=== PATIENT | female | born 1955 | race Caucasian/White ===

== ENCOUNTER 2020-04-14 10:01 | Day surgery (SDC) | payer BC ==
[2020-04-14] MEDS ORDERED: HYDROMORPHONE HCL INJ/PF 2 MG/ML AMPULE IV ONE ×4 (10:12→14:25)
[2020-04-14] MEDS ORDERED: METOCLOPRAMIDE HCL INJ/PF 10 MG/2 ML SDV IV ONE (10:12)
[2020-04-14] MEDS ORDERED: ETOMIDATE INJ/PF 20 MG/10 ML SDV IV ONE (11:37)
--- NOTE | 2020-04-14 11:37 | RADIOLOGY REPORT (SQ) ---
EXAM DESCRIPTION: HIP RIGHT AP/LATERAL IMAGES COMPLETED DATE/TIME: 04/14/2020 11:02 am REASON FOR STUDY: bed 19 s/o fall +pain and recent surgery COMPARISON: None. NUMBER OF VIEWS: Two views. TECHNIQUE: Frontal and cross-table lateral projections of the right hip. LIMITATIONS: None. FINDINGS: MINERALIZATION: Normal. RIGHT HIP: Status post total hip arthroplasty with cranial dislocation of the femoral head component. No osseous injury. No perihardware lucency or hardware fracture. PELVIS: No fracture. SACRUM: No fracture or dislocation. No worrisome bone lesions. LOWER LUMBAR SPINE: No fracture or dislocation. No worrisome bone lesions. SOFT TISSUES: No findings. OTHER: No other significant finding. IMPRESSION: Status post right total hip arthroplasty with cranial dislocation of the femoral compone nt. No osseous injury or evidence of hardware fracture. TECHNICAL DOCUMENTATION: JOB ID: [id number] 2010 [employer]- All Rights Reserved Reading location - IP/workstation name: [email or web address]
--- NOTE | 2020-04-14 13:04 | ER Document Report ---
Entered by CARLY HENRIQUEZ SCRIBE 04/14/20 1144 Acting as scribe for:KATHERINE ELLIS MD ED Extremity Problem, Lower - General Chief Complaint: Hip Pain Stated Complaint: FALL/LEG INJURY Time Seen by Provider: 04/14/20 10:03 Mode of Arrival: Ambulatory Information source: Patient Notes: This 64 year old female patient presents to the emergency department today with complaints of a right hip dislocation. Patient had a total right hip replacement in 2017 and had a revision of this hip 8 weeks ago. She reports that she was standing in the shower today and she was attempting to shave her legs and she felt it "pop out" and she fell over onto the right hip. - Related Data Allergies/Adverse Reactions: morphine Allergy (Verified 04/14/20 11:07) shellfish derived Adverse Reaction (Verified 04/14/20 11:07) Past Medical History - General Information source: Patient - Social History Smoking Status: Never Smoker Cigarette use (# per day): No Frequency of alcohol use: None Drug Abuse: None Lives with: Family Family History: Reviewed & Not Pertinent Musculoskeletal Medical History: Reports Hx Fibromyalgia Psychiatric Medical History: Reports: Hx Depression Past Surgical History: Reports: Hx Orthopedic Surgery - Right total hip replacement 2016, revision January 2020 Review of Systems - Review of Systems Constitutional: No symptoms reported EENT: No symptoms reported Cardiovascular: No symptoms reported Respiratory: No symptoms reported Gastrointestinal: No symptoms reported Genitourinary: No symptoms reported Female Genitourinary: No symptoms reported Musculoskeletal: See HPI, Joint pain - right hip, Deformity - right hip Skin: No symptoms reported Hematologic/Lymphatic: No symptoms reported Neurological/Psychological: No symptoms reported -: Yes All other systems reviewed and negative Physical Exam - Vital signs Vitals: Resp BP Pulse Ox 14 148/77 H 97 04/14/20 10:04 04/14/20 10:04 04/14/20 10:04 - Notes Notes: Physical Exam: General: Alert, appears uncomfortable. HEENT: Normocephalic. Atraumatic. PERRL. Extraocular movements intact. Oropharynx clear. Neck: Supple. Non-tender. Respiratory: No respiratory distress. Clear and equal breath sounds bilaterally. Cardiovascular: Regular rate and rhythm. Abdominal: Normal Inspection. Non-tender. No distension. Normal Bowel Sounds. Back: No gross abnormalities. Extremities: Moves all four extremities. Upper extremities: Right lower extremity is shortened. There is mild tenderness to palpation of the right hip. There is exquisite pain with attempted internal and external rotation of the right lower extremity. Lower extremities: Normal inspection. No edema. Normal ROM. Neurological: Normal cognition. AAOx4. Normal speech. Psychological: Normal affect. Normal Mood. Skin: Warm. Dry. Normal color. Course - Vital Signs Vital signs: Temp Pulse Resp BP Pulse Ox 74 12 133/73 H 100 04/14/20 13:03 04/14/20 13:36 04/14/20 13:36 04/14/20 13:36 - Laboratory Result Diagrams: 04/14/20 13:10 04/14/20 13:10 Laboratory results interpreted by me: 04/14/20 04/14/20 13:10 13:10 Seg Neutrophils % 79.6 H BUN 26 H Glucose 137 H - EKG Interpretation by Me EKG shows normal: Sinus rhythm, [place], Intervals, QRS Complexes. abnormal: ST-T Waves - Borderline inferior T abnormalities Rate: Normal - 63 Heart block present: 1st Degree When compared to previous EKG there are: Previous EKG unavailable - Consults Dr. Lawler Time consulted: 13:00 Consulted provider: will come to ER Procedures - Conscious Sedation Conscious sedation Consent obtained: Yes Pt with a mild systemic disease.: P2. - ASA Classification. Airway Evaluation: Normal anatomy Mallampati Classification: Class 2 Used during procedure: Suction available, IV access obtained, Pulse ox on pt., sediment remediation consultant on pt. Medications administered: Etomidate Reversal agents: None I personally performed/intraservice time: Sedation, Procedure, 30 min or less Complications: Yes Notes: The patient's respiratory rate decreased and oxygen saturation began to drop, so an oral airway was placed and the patient was ventilated via bag valve mask to maintain the oxygen saturations in the 96 to 98% range. She eventually did wake up after the medication wore off and did not have any complaints. - Joint Reduction/Fracture Care Right Hip Consent obtained: Yes Conscious sedation: Yes Pre-procedure NV exam: Yes Post-procedure NV exam: Yes Post-reduction x-ray: Joint not reduced Reduction attempts: 1 Complications: No Notes: 04/14/20 16:01 Dr. Lawler was consulted when I was unable to get the hip reduced. He plans to take the patient to the operating room for reduction under general anesthesia. Discharge - Discharge Clinical Impression: Failure of right total hip arthroplasty with dislocation of hip Qualifiers: Encounter type: initial encounter Qualified Code(s): T84.020A - Dislocation of internal right hip prosthesis, initial encounter Condition: Stable Disposition: ADMITTED INPATIENT Admitting Provider: Dr. Lawler Unit Admitted: Surgical Floor I personally performed the services described in the documentation, reviewed and edited the documentation which was dictated to the scribe in my presence, and it accurately records my words and actions.
[2020-04-14 13:27] LABS: ABSOLUTE EOSINOPHILS # (AUTO) 0.1 10^3/uL (0.0-0.6); ABSOLUTE MONOCYTES (AUTO) 0.4 10^3/uL (0.1-1.4); ABSOLUTE NEUT (AUTO) 6.3 10^3/uL (1.7-8.2); BASOPHILS % (AUTO) 0.5 % (0-2); EOSINOPHILS % (AUTO) 1.1 % (0-6); HEMATOCRIT 37.6 % (36.0-47.0); HEMOGLOBIN 12.8 g/dL (12.0-15.5); LYMPHOCYTES % (AUTO) 13.3 % (13-45); MEAN CORPUSCULAR HEMOGLOBIN 28.2 pg (27.0-33.4); MEAN CORPUSCULAR VOLUME 83 fl (80-97); MONOCYTES % (AUTO) 5.5 % (3-13); PLATELET COUNT 186 10^3/uL (150-450); RED BLOOD COUNT 4.53 10^6/uL (3.72-5.28); RED CELL DISTRIBUTION WIDTH 13.5 % (11.5-14.0); SEGMENTED NEUTROPHILS % (AUTO) 79.6 % (42-78); TOTAL CELLS COUNTED % (AUTO) 100 %; WHITE BLOOD COUNT 7.9 10^3/uL (4.0-10.5)
[2020-04-14 13:39] LABS: ALBUMIN 4.1 g/dL (3.5-5.0); ALKALINE PHOSPHATASE 103 U/L (38-126); ANION GAP 5 (5-19); ASPARTATE AMINO TRANSFERASE 30 U/L (14-36); BILIRUBIN,DIRECT 0.3 mg/dL (0.0-0.4); BILIRUBIN,TOTAL 0.6 mg/dL (0.2-1.3); BLOOD UREA NITROGEN 26 mg/dL (7-20); CALCIUM 9.1 mg/dL (8.4-10.2); CARBON DIOXIDE 27 mmol/L (22-30); CHLORIDE 107 mmol/L (98-107); GLUCOSE 137 mg/dL (75-110); TOTAL PROTEIN 6.6 g/dL (6.3-8.2)
--- NOTE | 2020-04-14 14:23 | RADIOLOGY REPORT (SQ) ---
EXAM DESCRIPTION: CHEST SINGLE VIEW IMAGES COMPLETED DATE/TIME: 04/14/2020 1:47 pm REASON FOR STUDY: Preop COMPARISON: None. EXAM PARAMETERS: NUMBER OF VIEWS: One view. TECHNIQUE: Single frontal radiographic view of the chest acquired. RADIATION DOSE: NA LIMITATIONS: None. FINDINGS: LUNGS AND PLEURA: No opacities, masses or pneumothorax. No pleural effusion. MEDIASTINUM AND HILAR STRUCTURES: No masses. Contour normal. HEART AND VASCULAR STRUCTURES: Heart normal in size. Normal vasculature. BONES: No acute findings. HARDWARE: None in the chest. OTHER: No other significant finding. IMPRESSION: NO ACUTE RADIOGRAPHIC FINDING IN THE CHEST. TECHNICAL DOCUMENTATION: JOB ID: [id number] 2010 [employer]- All Rights Reserved Reading location - IP/workstation name: [email or web address]
[2020-04-14] MEDS ORDERED: ONDANSETRON HCL INJ/PF 4 MG/2 ML SDV IV ONE (14:25)
--- NOTE | 2020-04-14 14:36 | EKG REPORT ---
SEVERITY:- ABNORMAL ECG - SINUS RHYTHM FIRST DEGREE AV BLOCK BORDERLINE T ABNORMALITIES, INFERIOR LEADS : Confirmed by: Awilda Kaur MD 14-Apr-2020 14:34:54
[2020-04-14] MEDS: HYDROMORPHONE HCL INJ/PF 2 MG/ML AMPULE IV PRN ×3 (17:54→23:30)
[2020-04-14] MEDS ORDERED: DEXTROSE 40% GEL 15 GM TUBE PO PRN ×2 (17:57)
[2020-04-14] MEDS ORDERED: DEXTROSE 50%-WATER 25 GM/50 ML DISP.SYRIN IV PRN ×2 (17:57)
[2020-04-14] MEDS ORDERED: GLUCAGON,HUMAN RECOMB 1 MG INJ SUBCUT PRN (17:57)
[2020-04-14] MEDS: ONDANSETRON HCL INJ/PF 4 MG/2 ML SDV IV PRN (18:02)
[2020-04-14] MEDS: OXYCODONE HCL IR 5 MG TABLET PO PRN ×2 (18:36→22:53)
[2020-04-14] MEDS: SPIRONOLACTONE 25 MG TABLET PO SCH (18:45)
[2020-04-14 19:46] LABS: APPEARANCE,URINE CLEAR; BILIRUBIN,URINE NEGATIVE (NEGATIVE); COLOR,URINE YELLOW; GLUCOSE, URINE NEGATIVE (NEGATIVE); KETONES,URINE TRACE mg/dL (NEGATIVE); LEUKOCYTE ESTERASE,URINE NEGATIVE (NEGATIVE); NITRITE,URINE NEGATIVE (NEGATIVE); PROTEIN,URINE NEGATIVE (NEGATIVE); UROBILINOGEN,URINE NEGATIVE mg/dL (<2.0)
[2020-04-14] MEDS ORDERED: NADOLOL 40 MG TABLET PO SCH (22:00)
[2020-04-15] MEDS ORDERED: RINGERS SOLUTION,LACTATED 1,000 ML IV PRN ×2 (00:01→08:20)
[2020-04-15] MEDS: HYDROMORPHONE HCL INJ/PF 2 MG/ML AMPULE IV PRN ×3 (00:47→05:50)
[2020-04-15] MEDS ORDERED: IBUPROFEN INJ 800 MG/8 ML VIAL IV ONE (02:00)
[2020-04-15] MEDS: ONDANSETRON HCL INJ/PF 4 MG/2 ML SDV IV PRN (02:36)
[2020-04-15] MEDS ORDERED: ACETAMINOPHEN 1,000 MG/100 ML RTUPB IV ONE (03:30)
--- NOTE | 2020-04-15 06:58 | PDOC H&P ---
History of Present Illness Admission Date/PCP: 04/14/20 13:21 NO LOCALMA History of Present Illness: SHEILA SHETTY is a 64 year old female 64-year-old female status post a right hip arthroplasty in 2017 and then a subsequent acetabular revision on February 07, 2020. The patient did well following this until the morning of admission at which point she placed her leg up on the rim of a bathtub to shave her legs and the extremity gave way and she fell. She is brought to the emergency room her prosthetic right hip dislocation was identified radiographically. An attempt was made for closed reduction under conscious sedation which was unsuccessful and notable for extreme sensitivity on the patient's part to medication and respiratory depression. Patient subsequently to the orthopedic service for management of the dislocation. Past Medical History Medical History: None Cardiac Medical History: Reports: Hypertension Musculoskeltal Medical History: Reports: Fibromyalgia Psychiatric Medical History: Reports: Depression Past Surgical History Past Surgical History: Reports: Orthopedic Surgery - Right total hip replacement 2016, revision January 2020 Social History Information Source: Patient, [facility] Records Lives with: Family, Spouse/Significant other Smoking Status: Never Smoker Frequency of Alcohol Use: Occasional Hx Recreational Drug Use: No Hx Prescription Drug Abuse: No - Advance Directive Resuscitation Status: Full Code Family History Family History: Reviewed & Not Pertinent Parental Family History Reviewed: No Children Family History Reviewed: No Sibling(s) Family History Reviewed.: No Medication/Allergy Home Medications: Biotin 2,500 mcg PO DAILY 04/14/20 Bupropion HCl [Bupropion HCl Sr] 150 mg PO BID 04/14/20 Calcium/Magnesium/Zinc [Ctjktgf-Iiaqnjuut-Jaci Tablet] 2 tab PO QHS 04/14/20 Cholecalciferol (Vitamin D3) [Vitamin D3] 125 mcg PO DAILY 04/14/20 Diclofenac Submicronized [Zorvolex] 35 mg PO TID 04/14/20 Duloxetine HCl 30 mg PO QHS 04/14/20 Estradiol [Vagifem] 10 mcg VG TUTH 04/14/20 Gabapentin 300 mg PO Q8 04/14/20 Melatonin 5 mg PO QHS 04/14/20 Nadolol 20 mg PO QHS 04/14/20 Spironolactone [Aldactone 25 mg Tablet] 25 mg PO BID 04/14/20 Hydrocodone/Acetaminophen [[place] 5-325 Tablet] 1 each PO Q4 04/15/20 Tramadol HCl [Ultram 50 mg Tablet] 50 mg PO Q6HP PRN 04/15/20 Allergies/Adverse Reactions: morphine Allergy (Verified 04/14/20 11:07) shellfish derived Adverse Reaction (Verified 04/14/20 11:07) Review of Systems All systems: as per PMH Physical Exam Vital Signs: Temp Pulse Resp BP Pulse Ox 36.3 C 55 L 18 125/65 100 04/15/20 00:00 04/15/20 00:00 04/15/20 00:00 04/15/20 00:00 04/15/20 00:00 Intake & Output 04/13/20 04/14/20 04/15/20 06:59 06:59 06:59 Intake Total 270 Output Total 700 Balance -430 Weight 220.7 kg General appearance: PRESENT: mild distress, well-developed, well-nourished Head exam: PRESENT: normocephalic Respiratory exam: PRESENT: unlabored Cardiovascular exam: PRESENT: RRR Pulses: PRESENT: +1 pedal pulses bilateral Vascular exam: PRESENT: normal capillary refill GI/Abdominal exam: PRESENT: soft Rectal exam: PRESENT: deferred Extremities exam: PRESENT: other - Right lower extremity is shortened and externally rotated. There is brisk capillary refill. Motor function to great toe flexion extension is intact. There is no skin abnormalities. Results Laboratory Results: 04/14/20 13:10 04/14/20 13:10 04/14/20 04/14/20 04/14/20 13:10 13:10 19:09 WBC 7.9 RBC 4.53 Hgb 12.8 Hct 37.6 MCV 83 MCH 28.2 MCHC 34.0 RDW 13.5 Plt Count 186 Seg Neutrophils % 79.6 H Sodium 138.8 Potassium 4.0 Chloride 107 Carbon Dioxide 27 Anion Gap 5 BUN 26 H Creatinine 0.85 Est GFR ( Amer) > 60 Glucose 137 H Calcium 9.1 Total Bilirubin 0.6 AST 30 Alkaline Phosphatase 103 Total Protein 6.6 Albumin 4.1 Urine Color YELLOW Urine Appearance CLEAR Urine pH 7.0 Ur Specific [place] 1.020 Urine Protein NEGATIVE Urine Glucose (UA) NEGATIVE Urine Ketones TRACE H Urine Blood NEGATIVE Urine Nitrite NEGATIVE Ur Leukocyte Esterase NEGATIVE Urine WBC (Auto) 3 Urine RBC (Auto) 1 Impressions: Hip/Pelvis X-Ray 04/14/20 00:00 IMPRESSION: Status post right total hip arthroplasty with cranial dislocation of the femoral component. No osseous injury or evidence of hardware fracture. Chest X-Ray 04/14/20 13:03 IMPRESSION: NO ACUTE RADIOGRAPHIC FINDING IN THE CHEST. Status: Imported from PACS Assessment & Plan - Diagnosis (1) Failure of right total hip arthroplasty with dislocation of hip Qualifiers: Encounter type: initial encounter Qualified Code(s): T84.020A - Dislocation of internal right hip prosthesis, initial encounter Is this a current diagnosis for this admission?: Yes Plan: Plan will be for closed reduction under anesthetic. Patient and her are aware that there is a small possibility that this could be converted to an open reduction if I cannot affect a closed reduction. If we were to open reduce it would be through a posterior approach. This is also discussed with the patient and her . The risk of repeat dislocation is reviewed with them - Time Time Spent: 50 to 70 Minutes Anticipated Discharge Disposition: Home, Self Care Anticipated Discharge Timeframe: within 24 hours
[2020-04-15] MEDS ORDERED: FENTANYL CITRATE INJ/PF 100 MCG/2 ML AMPUL ONE (07:00)
[2020-04-15] MEDS ORDERED: KETAMINE HCL INJ 500 MG/10 ML VIAL ONE (07:00)
[2020-04-15] MEDS ORDERED: MIDAZOLAM 2 MG/2 ML INJ ONE (07:00)
[2020-04-15] MEDS ORDERED: LIDOCAINE 2% INJ-PF (20 MG/ML) 10 ML AMPUL ONE (07:00)
[2020-04-15] MEDS ORDERED: PROPOFOL INJ 200 MG/20 ML VIAL IV ONE (07:00)
--- NOTE | 2020-04-15 07:56 | Operative Report ---
Operative Report DATE OF SURGERY: 04/15/20 PREOPERATIVE DIAGNOSIS: Dislocated right prosthetic hip OPERATION: Closed reduction right hip dislocation SURGEON: PARI LIRIANO ANESTHESIA: Moderate Sedation PROCEDURE: The patient is placed in a left lateral decubitus position on the operating table and under fluoroscopic guidance the right lower extremities manipulated to affect a concentric reduction of the femoral head within the acetabular component. A knee immobilizer was placed and the patient was returned to the PACU in satisfactory condition.
--- NOTE | 2020-04-15 07:58 | Discharge Summary ---
Discharge Summary (SDC) - Discharge Final Diagnosis: Right prosthetic hip dislocation Date of Surgery: 04/15/20 Discharge Date: 04/15/20 Condition: Good Treatment or Instructions: Weightbearing as tolerated ambulation with a knee immobilizer in place at all times. Follow-up with your orthopedic surgeon in [place] upon returning home. Referrals: LOCALMD,NO [Primary Care Provider] - Follow up as needed Discharge Diet: Regular Respiratory Treatments at Home: Deep Breathing/Coughing Home Care Assistance: None Needed Report the Following to Your Physician Immediately: Shortness of Breath, Fever over 101 Degrees
[2020-04-15] MEDS ORDERED: ONDANSETRON 4 MG TAB.RAPDIS SL PRN (08:21)
[2020-04-15] MEDS ORDERED: HYDROCODONE/ACETAMINOPHEN 5-325 MG TABLET PO PRN (08:21)
--- NOTE | 2020-04-15 08:46 | RADIOLOGY REPORT (SQ) ---
EXAM DESCRIPTION: HIP IN OPERATING RM; NO CHG FLUORO IMAGES COMPLETED DATE/TIME: 04/15/2020 8:29 am REASON FOR STUDY: RIGHT HIP CLOSED REDUCTION COMPARISON: 04/14/2020 FLUOROSCOPY TIME: 0.1 minutes Spot images saved to PACS. TECHNIQUE: Intra-operative images acquired during surgical procedure to evaluate progress. NUMBER OF IMAGES: 2 LIMITATIONS: None. FINDINGS: Fluoroscopy was provided for intraoperative procedure. Please refer to the operative repo rt for further discussion. IMPRESSION: IMAGE(S) OBTAINED DURING PROCEDURE. COMMENT: Quality ID [id number]: Final reports for procedures using fluoroscopy that document radiation exp osure indices, or exposure time and number of fluorographic images (if radiation exposure indices are not available) Please consult full operative report of the attending physician for description of the procedure. TECHNICAL DOCUMENTATION: JOB ID: [id number] 2010 [employer]- All Rights Reserved Reading location - IP/workstation name: [email or web address]
--- NOTE | 2020-04-15 08:46 | RADIOLOGY REPORT (SQ) ---
EXAM DESCRIPTION: HIP IN OPERATING RM; NO CHG FLUORO IMAGES COMPLETED DATE/TIME: 04/15/2020 8:29 am REASON FOR STUDY: RIGHT HIP CLOSED REDUCTION COMPARISON: 04/14/2020 FLUOROSCOPY TIME: 0.1 minutes Spot images saved to PACS. TECHNIQUE: Intra-operative images acquired during surgical procedure to evaluate progress. NUMBER OF IMAGES: 2 LIMITATIONS: None. FINDINGS: Fluoroscopy was provided for intraoperative procedure. Please refer to the operative repo rt for further discussion. IMPRESSION: IMAGE(S) OBTAINED DURING PROCEDURE. COMMENT: Quality ID [id number]: Final reports for procedures using fluoroscopy that document radiation exp osure indices, or exposure time and number of fluorographic images (if radiation exposure indices are not available) Please consult full operative report of the attending physician for description of the procedure. TECHNICAL DOCUMENTATION: JOB ID: [id number] 2010 [employer]- All Rights Reserved Reading location - IP/workstation name: [email or web address]
[2020-04-15] MEDS ORDERED: DIPHENHYDRAMINE HCL 50 MG/ML VIAL IV PRN (10:23)
[2020-04-15] MEDS ORDERED: PROMETHAZINE HCL INJ 25 MG/1 ML VIAL IV PRN ×2 (10:23)
[2020-04-15] MEDS: SPIRONOLACTONE 25 MG TABLET PO SCH ×2 (13:48→17:37)
[2020-04-15 16:58] VITALS: BP 125/65
== END 2020-04-15 17:30 | disposition home or self-care (01) ==
LOC: ER 10:01 → UNDOADMIN 13:21 → OROUT 13:21 → EH 13:21 → 4S 17:48 → EH 17:48 → ER 04-15 17:30 → UNDODISIN 04-15 17:30 → OROUT 04-15 17:30
PROVIDERS: ATTEND Orthopaedic Surgery
DX: T84.020A Dislocation of internal right hip prosthesis, initial encounter (principal); W18.2XXA Fall in (into) shower or empty bathtub, initial encounter; Y93.E8 Activity, other personal hygiene; I10 Essential (primary) hypertension; M79.7 Fibromyalgia; Z03.818 Encounter for observation for suspected exposure to other biological agents ruled out; I44.0 Atrioventricular block, first degree; Z79.899 Other long term (current) drug therapy
CPT/HCPCS: 93005; 99285; 99152; 96374; 96375; 36415; 85025; 80053; 81001; 71045; 73502; 73501; 93010; 97530; 97116; 97161; 01200; 27265 ×2; L1830; U0003; J2250; S0119; J3490 ×3; J2765; J1170 ×2; J2405 ×2; J7120; J2704; J0131; C9803; 87635; J3010